=== PATIENT | female | born 1980 | race Caucasian/White ===

== ENCOUNTER 2023-10-29 10:54 | Observation (INO) | payer BC ==
[2023-10-28 08:54] LABS: BASOPHILS % 0.6 % (0.0-1.0); EOSINOPHILS # (AUTO) 0.2 (0.0-0.4); EOSINOPHILS % 2.7 % (0.0-6.0); HEMATOCRIT 40.6 % (34.2-44.1); LYMPHOCYTES # (AUTO) 2.1 (1.0-3.2); LYMPHOCYTES % 30.3 % (18.0-39.1); MEAN CORPUSCULAR VOLUME 93.8 fL (81-99); MONOCYTES # (AUTO) 0.7 (0.2-0.8); MONOCYTES % 9.2 % (4.4-11.3); NEUTROPHILS % 56.9 % (38.7-80.0); PLATELET COUNT 350 x10e3/uL (140-360); RED BLOOD COUNT 4.33 x10e6/uL (3.6-5.1); RED CELL DISTRIBUTION WIDTH 13.2 % (11.7-14.4); WHITE BLOOD COUNT 7.07 x10e3/uL (4.8-10.8)
[2023-10-28 09:14] LABS: BILIRUBIN,URINE NEGATIVE (NEGATIVE); CLARITY,URINE CLEAR (CLEAR); COLOR,URINE YELLOW (YELLOW); GLUCOSE, URINE NEGATIVE (NEGATIVE); KETONES,URINE NEGATIVE (NEGATIVE); LEUKOCYTE ESTERASE ,URINE NEGATIVE (NEGATIVE); NITRITE,URINE NEGATIVE (NEGATIVE); PH,URINE 7 (5 - 7); PROTEIN,URINE DIPSTICK NEGATIVE (NEGATIVE); URINE UROBILINOGEN 0.2 mg/dL (0.2 - 1)
[~2023-10-29] VITALS: Ht 167.6 cm; Wt 61.7 kg
[~2023-10-29 10:54] MED LIST: LINZESS145 MCG PO; PROBIOTIC & AC1 EACH PO; VYVANSE30 MG PO
[2023-10-29] MEDS ORDERED: ROCURONIUM BROMIDE 10 MG/ML 5ML VIAL IV ONE (11:19)
[2023-10-29] MEDS ORDERED: ONDANSETRON HCL INJ 2MG/ML 2ML 2 MG/ML VIAL ONE (11:19)
[2023-10-29] MEDS ORDERED: LIDOCAINE HCL 2% LOCAL INJ 5 ML SDV VIAL INJ ONE (11:19)
[2023-10-29] MEDS ORDERED: DEXAMETHASONE SOD PHOS INJ 4 MG/ML SDV ONE (11:19)
[2023-10-29] MEDS ORDERED: ACETAMINOPHEN 1000 MG/100 ML IV ONE (11:19)
[2023-10-29] MEDS ORDERED: PROPOFOL IV EMULSION 10 MG/ML 20 ML VIAL ONE (11:19)
[2023-10-29] MEDS ORDERED: SUGAMMADEX SODIUM 200 MG/2 ML VIAL IV ONE (11:19)
[2023-10-29] MEDS ORDERED: SEVOFLURANE INHAL SOLN 250 ML PEN BTL ONE (11:19)
[2023-10-29] MEDS: CEFAZOLIN SODIUM 2 GM ONE (11:49)
[2023-10-29] MEDS: LACTATED RINGER'S 1,000 ML ONE (11:49)
[2023-10-29] MEDS ORDERED: BUPIVACAINE 0.5%/EPI 30 ML SDV INJ ONE (12:47)
[2023-10-29] MEDS ORDERED: FENTANYL CITRATE/PF 100MCG/2 ML INJ ONE (12:59)
[2023-10-29] MEDS: MEPERIDINE HCL INJ 25 MG/ML VIAL ONE (16:10)
[2023-10-29] MEDS ORDERED: ONDANSETRON HCL INJ 2MG/ML 2ML 2 MG/ML VIAL IV PRN (16:15)
[2023-10-29] MEDS ORDERED: DOCUSATE SODIUM 100 MG CAP PO PRN (16:15)
[2023-10-29] MEDS: ONDANSETRON HCL INJ 2MG/ML 2ML 2 MG/ML VIAL ONE (16:15)
[2023-10-29] MEDS ORDERED: DIPHENHYDRAMINE HCL 25 MG CAP PO PRN (16:15)
[2023-10-29] MEDS ORDERED: BISACODYL 10 MG SUPP PR PRN (16:15)
[2023-10-29] MEDS: METOCLOPRAMIDE HCL 10 MG/2ML VIAL ONE (16:15)
[2023-10-29] MEDS ORDERED: Morphine 4mg INJECTION 4 MG/ML INJ IV PRN (16:15)
[2023-10-29] MEDS ORDERED: ACETAMINOPHEN 325 MG TAB PO PRN (16:15)
[2023-10-29 17:18] VITALS: BP 159/71; PULSE 53; RESP 16; TEMP 97.9; O2SAT 100
[2023-10-29] MEDS: KETOROLAC TROMETHAMINE 30 MG/ML VIAL IV SCH (17:45)
[2023-10-29] MEDS: SIMETHICONE 80 MG CHEW PO SCH (17:46)
[2023-10-29] MEDS: Morphine 2mg Syringe 2 MG/ML SYR IV PRN (17:46)
[2023-10-29] MEDS: LACTATED RINGER'S 1,000 ML IV SCH (17:51)
[2023-10-29 17:52] VITALS: BP 159/71; PULSE 53; RESP 16; TEMP 97.9; O2SAT 100
[2023-10-29 19:30] VITALS: PULSE 72; RESP 18; O2SAT 100
[2023-10-29 19:32] VITALS: BP 134/73; PULSE 62; RESP 18; TEMP 97.9; O2SAT 100
[2023-10-29 20:00] VITALS: BP 134/73; PULSE 62; RESP 18; TEMP 97.9; O2SAT 100
[2023-10-29] MEDS: CEFAZOLIN SODIUM 2 GM in SODIUM CHLORIDE 0.9% 100 ML IV SCH (21:07)
[2023-10-29 23:29] VITALS: BP 129/71; PULSE 55; RESP 18; TEMP 98.2; O2SAT 100
[2023-10-30 04:00] VITALS: BP 112/70; PULSE 50; RESP 20; TEMP 98; O2SAT 100
[2023-10-30 05:42] LABS: BASOPHILS % 0.3 % (0.0-1.0); EOSINOPHILS # (AUTO) 0.1 (0.0-0.4); EOSINOPHILS % 0.3 % (0.0-6.0); HEMATOCRIT 34.7 % (34.2-44.1); HEMOGLOBIN 10.9 g/dL (12.0-16.0); LYMPHOCYTES # (AUTO) 2.2 (1.0-3.2); LYMPHOCYTES % 14.5 % (18.0-39.1); MEAN CORPUSCULAR HGB CONC 31.4 g/dL (31-35); MEAN CORPUSCULAR VOLUME 95.6 fL (81-99); MONOCYTES # (AUTO) 1.1 (0.2-0.8); MONOCYTES % 7.1 % (4.4-11.3); NEUTROPHILS # (AUTO) 11.6 (2.1-6.9); NEUTROPHILS % 77.3 % (38.7-80.0); PLATELET COUNT 301 x10e3/uL (140-360); RED BLOOD COUNT 3.63 x10e6/uL (3.6-5.1); RED CELL DISTRIBUTION WIDTH 13.1 % (11.7-14.4); WHITE BLOOD COUNT 15.01 x10e3/uL (4.8-10.8)
[2023-10-30 08:56] VITALS: BP 112/70; PULSE 50; RESP 20; TEMP 98; O2SAT 100
[2023-10-30 09:06] VITALS: BP 108/67; PULSE 53; RESP 19; TEMP 98.2; O2SAT 100
[2023-10-30] MEDS ORDERED: KETOROLAC TROME10 MG PO (11:05)
[2023-10-30 12:16] VITALS: BP 111/54; PULSE 56; RESP 20; TEMP 98.2; O2SAT 100
== END 2023-10-30 11:32 | disposition home or self-care (01) ==
LOC: OR 10:54 → PACU V 14:32 → MED/SURG2 16:59
PROVIDERS: ADMIT Obstetrics & Gynecology; ATTEND Obstetrics & Gynecology
DX: N93.8 Other specified abnormal uterine and vaginal bleeding (principal); N94.6 Dysmenorrhea, unspecified; D26.1 Other benign neoplasm of corpus uteri; N88.8 Other specified noninflammatory disorders of cervix uteri; E03.9 Hypothyroidism, unspecified; K58.9 Irritable bowel syndrome, unspecified; F41.9 Anxiety disorder, unspecified; E55.9 Vitamin D deficiency, unspecified; F90.9 Attention-deficit hyperactivity disorder, unspecified type; F17.290 Nicotine dependence, other tobacco product, uncomplicated; L70.9 Acne, unspecified; Z01.812 Encounter for preprocedural laboratory examination; Z01.818 Encounter for other preprocedural examination; Z79.899 Other long term (current) drug therapy
CPT/HCPCS: 36415 ×2; 58571; 71046; 81003; 84702; 85025 ×2; 86850; 86900; 88307; 94799; G0378 ×2; J0131; J1100; J1885 ×2; J2001; J2175; J2270 ×2; J2405; J2704; J2765; J3010; J7050 ×2; J7121